=== PATIENT | male | born 1965 | race Caucasian/White ===

== ENCOUNTER 2024-08-11 06:27 | Day surgery (SDC) | payer OTHER ==
[2024-08-11] VITALS (8 sets, daily range): BP systolic 110–138; BP diastolic 67–76
[~2024-08-11] VITALS: Ht 167.6 cm; Wt 60.3 kg
[~2024-08-11 06:27] MED LIST: ANORO ELLIPTA1 EAC1 INH; ASPI81EC PO; Aspir 8181 MG PO; DIAZ5 PO; IBUP600 PO; Inspiration1 EACH; K-Dur20 MEQ PO; MUPI2TO TOP; Micro-K10 MEQ PO; OLME20 PO; OXYACE5T PO; POTCHL10ER PO; PRED20 PO; PROZAC2010 PO; RXCLIN PO; SULTRIDS PO; TIOT18; Ventolin Soln3 ML
[2024-08-11] MEDS ORDERED: Verapamil HCL 2.5 MG/ML 2ML Injection ONE (06:29)
[2024-08-11] MEDS ORDERED: Nitroglycerin 2 MG/20 ML BTL ONE (06:30)
[2024-08-11] MEDS ORDERED: Heparin Sodium 1000 Units/ML 10ML MDV ONE (06:30)
[2024-08-11] MEDS ORDERED: NS 250 ML IV ONE (06:30)
[2024-08-11] MEDS ORDERED: NS 1,000 ML IV ONE ×2 (06:30→07:36)
[2024-08-11] MEDS ORDERED: ATOR80 PO (06:45)
[2024-08-11] MEDS ORDERED: COMBIVENT RESPIM4 G1 INH (06:47)
[2024-08-11] MEDS ORDERED: IPRAT-ALBUT 0.5-3 ML INH (06:48)
[2024-08-11] MEDS ORDERED: Aspirin 325 MG Tab ONE (07:06)
[2024-08-11 07:08] LABS: Hematocrit 43.7 % (37.0-53.0); Hemoglobin 14.6 g/dL (13.5-17.5); Mean Corpuscular HGB 32.6 pg (26.0-34.0); Mean Corpuscular HGB Conc 33.4 g/dL (31.5-36.5); Mean Corpuscular Volume 98 fL (80-100); Mean Platelet Volume 9.3 fL (9.1-12.4); Platelet Count 348 K/mm3 (150-400); RDW Coefficient Variation 13.6 % (11.7-14.2); RDW Standard Deviation 48.7 fL (35.1-46.3); Red Blood Cell Count 4.48 M/mm3 (4.30-5.90); White Blood Cell Count 11.04 K/mm3 (4.00-11.30)
[2024-08-11 07:21] LABS: Prothrombin Time Results 10.7 Sec (9.7-11.5)
[2024-08-11] MEDS ORDERED: FentaNYL Citrate 50 MCG/ML 2 ML Injection ONE (07:36)
[2024-08-11] MEDS ORDERED: Midazolam HCl 1MG / ML 2ML Vial ONE (07:36)
--- NOTE | 2024-08-11 08:21 | NUR ---
PT RETURNED TO RECOVERY ROOM IN [facility]. RIGHT RADIAL TR BAND SITE SOFT NON-TENDER WITH NO HEMATOMA, NO PULSATILE BLEEDING AND RIGHT WRIST BOARD IN PLACE. PT DENIES ANY PAIN. DR ESPINOZA IN ROOM TO SEE PT. CALL LIGHT IN REACH.
--- NOTE | 2024-08-11 08:32 | NUR ---
PT'S DAUGHTER IN ROOM. PT'S EATING BREAKFAST.
--- NOTE | 2024-08-11 08:34 | NUR ---
NO CHANGES TO R RAD SITE.
--- NOTE | 2024-08-11 09:10 | NUR ---
NO CHANGES TO R RAD TR BAND SITE.
--- NOTE | 2024-08-11 09:40 | NUR ---
10 CC OF AIR REMOVED OUT NOW DEFLATED R TR BAND OVER 10 MIN. NO HEMATOMA,NO PULSATILE BLEEDING AND WRIST BOARD IN PLACE. DISCHAREGE INSTRUCTIONS REVIEWED ALL QUESTIONS ANSWERED.
--- NOTE | 2024-08-11 09:58 | NUR ---
NO CHANGES TO DEFLATED RIGHT TR BAND SITE.
--- NOTE | 2024-08-11 10:37 | NUR ---
DEFLATED RIGHT TR BAND REMOVED AND POLYMEM PLACED OVER RIGHT RADIAL SITE WITH RIGHT WRIST BOARD IN PLACE. R RAD SITE STILL SOFT NON-TENDER WITH NO HEMATOMA, NO PULSATILE BLEEDING. 20 G IV DISCONTINUED FROM RIGHT AC SITE WITH INTACT CANNULA. PT ESCORTED OUT VIA WHEELCHAIR ESCORT.
== END 2024-08-11 10:43 | disposition home or self-care (01) ==
LOC: MHTC 06:27
PROVIDERS: Student in an Organized Health Care Education/Training Program
DX: I25.118 Atherosclerotic heart disease of native coronary artery with other forms of angina pectoris (principal); R94.39 Abnormal result of other cardiovascular function study; I10 Essential (primary) hypertension; E78.5 Hyperlipidemia, unspecified; J44.9 Chronic obstructive pulmonary disease, unspecified; Z88.0 Allergy status to penicillin; Z72.0 Tobacco use; Z79.899 Other long term (current) drug therapy
CPT/HCPCS: 76937; 85027; 85610; 93458; 99152; A9270; C1769; C1887; C1894; J1644; J2250; J3010; J7030; J7050; Q9967